=== PATIENT | male | born 1950 | race Caucasian/White ===

== ENCOUNTER → 2016-10-01 | Outpatient (CLI) | payer OTHER ==
--- NOTE | 2016-10-01 12:11 | RAD ---
MRI of the right shoulder HISTORY: Right shoulder pain. Limited range of motion when reaching below waist level. FINDINGS: Severe motion degradation on some sequences. The acromioclavicular joint is mildly degenerative. Generalized rotator cuff tendinosis. Full thickness nonretracted tear of the anterior supraspinatus tendon measures about 2 cm in AP diameter. There is deep undersurface tearing extending to the posterior supraspinatus and infraspinatus tendon. Partial subscapularis tendon tearing. Mild fluid in the subdeltoid bursa. No advanced rotator cuff muscle atrophy. Trace glenohumeral joint effusion. Mild degenerative changes at the glenohumeral joint. Deformity and abnormal signal in the superior labrum compatible with degenerative tear. Limited biceps tendon visualization due to the motion degradation. No aggressive bone lesion or acute fracture. No acute soft tissue abnormality. IMPRESSION: 1. Moderate full-thickness nonretracted supraspinatus tendon tear. Partial tearing through the remaining rotator cuff. 2. Degenerative superior labral tear. Electronically signed by: Ramo Burroughs MD (10/01/2016 12:08 PM)
== END | disposition home or self-care (01) ==
LOC: MRI 09:56
PROVIDERS: ATTEND Nurse Practitioner Family
DX: M75.21 Bicipital tendinitis, right shoulder (principal)
CPT/HCPCS: 73221